=== PATIENT | female | born 1945 | race African-American/Black ===

== ENCOUNTER 2018-04-15 19:14 | Inpatient (IN) | payer MEDICARE, MEDICAID ==
[~2018-04-15] VITALS: Ht 165.1 cm; Wt 77.1 kg
[2018-04-15] MEDS ORDERED: DEXT 5%/0.45% NACL 1000ML 1,000 ML IV ONE (19:57)
[2018-04-15] MEDS ORDERED: SODIUM CHLORIDE 0.9% 500 ML IV ONE (19:57)
[2018-04-15 20:36] LABS: BASOPHILS % 0.2 % (0.0-2.0); HEMOGLOBIN. 12.2 g/dL (12.0-16.0); LYMPHOCYTES % 10.7 % (20.0-50.0); MEAN CORPUSCULAR VOLUME 94.2 fL (81.0-99.0); MEAN PLATELET VOLUME 9.9 fl (7.4-10.4); MONOCYTES % 6.1 % (2.0-8.0); PLATELET 225 x1000/uL (130-400); RED BLOOD CELL COUNT 3.93 mill/uL (4.2-5.4)
[2018-04-15 20:40] LABS: CHLORIDE 105 mEq/L (98-107)
[2018-04-15 20:44] LABS: PROTHROMBIN TIME 9.9 sec (9.1-11.1)
[2018-04-15] MEDS ORDERED: CALCIUM CHLORIDE 1GM/10ML SYR IV ONE (21:00)
[2018-04-15] MEDS ORDERED: SODIUM BICARBONATE 8.4% 1 MEQ/ML 50ML SYR IV ONE (21:00)
[2018-04-15] MEDS ORDERED: SODIUM POLYSTYRENE SULFONATE 15 G/60 ML BOT PO ONE (21:00)
[2018-04-15] MEDS ORDERED: CLONIDINE 0.2MG TABLET PO ONE (21:15)
[2018-04-15 21:36] LABS: CREATINE KINASE 294 IU/L (26-192)
[2018-04-15 22:14] LABS: CLARITY URINE CLOUDY (CLEAR); COLOR URINE YELLOW (YELLOW); KETONES URINE NEGATIVE (NEGATIVE); LEUKOCYTE ESTERASE URINE 2+ (NEGATIVE); NITRITE URINE POSITIVE (NEGATIVE); OCCULT BLOOD URINE NEGATIVE (NEGATIVE); PH URINE 6.5 (4.5-8.0); PROTEIN URINE NEGATIVE (NEGATIVE); SPECIFIC GRAVITY URINE 1.011 (1.005-1.030); UROBILINOGEN URINE 0.2 E.U./dL (0.2-1.0)
[2018-04-15] MEDS ORDERED: CEFTRIAXONE 1 G PREMIX 50 ML IV ONE (23:30)
[2018-04-16] VITALS (7 sets, daily range): BP systolic 136–173; BP diastolic 57–77
[2018-04-16] MEDS ORDERED: INSULIN REGULAR (HUMULIN R) 300UNITS/3ML IV ONE (00:15)
[2018-04-16] MEDS ORDERED: DEXTROSE 50% WATER 50ML SYRINGE IV ONE (00:15)
[2018-04-16] MEDS ORDERED: ALBUTEROL (0.083%) 2.5MG/3ML NEB HHN ONE (00:15)
[2018-04-16] MEDS ORDERED: SODIUM BICARBONATE 8.4% 1 MEQ/ML 50ML SYR IV ONE (00:15)
[2018-04-16] MEDS ORDERED: DOCUSATE SODIUM 100MG CAPSULE PO PRN (05:45)
[2018-04-16] MEDS ORDERED: ACETAMINOPHEN 325MG TABLET PO PRN (05:45)
[2018-04-16] MEDS ORDERED: DEXTROSE 50% WATER 50ML SYRINGE IV PRN (05:45)
[2018-04-16] MEDS ORDERED: MAGNESIUM/ALUMINUM HYDROXIDE/SIMETHICONE 30ML UDC PO PRN (05:45)
[2018-04-16] MEDS ORDERED: ENOXAPARIN 40MG/0.4ML SYR SUBCUT SCH (05:45)
[2018-04-16] MEDS ORDERED: ONDANSETRON HCL 4MG/2ML INJ IV PRN (05:45)
[2018-04-16] MEDS ORDERED: HYDRALAZINE 20MG/ML VIAL IV PRN (05:45)
[2018-04-16] MEDS ORDERED: HYDROCODONE/ACETAMINOPHEN 5/325MG TABLET PO PRN (05:45)
[2018-04-16] MEDS ORDERED: LORAZEPAM 2MG/ML CPJ IV PRN (05:45)
[2018-04-16] MEDS ORDERED: CEFTRIAXONE 1 G PREMIX 50 ML IV SCH ×3 (05:45→21:00)
[2018-04-16] MEDS ORDERED: HYDROMORPHONE HCL/PF 2MG/ML CPJ IV PRN (05:45)
[2018-04-16] MEDS ORDERED: IPRATROPIUM/ALBUTEROL 0.5-3(2.5)MG/3ML NEB INH PRN (05:45)
[2018-04-16] MEDS ORDERED: GUAIFENESIN 200MG/10ML SUGAR FREE UDC PO PRN (05:45)
[2018-04-16] MEDS ORDERED: CLONIDINE 0.1MG TABLET PO PRN (05:45)
[2018-04-16] MEDS ORDERED: DIPHENHYDRAMINE 50MG/ML VIAL IV PRN (05:45)
[2018-04-16] MEDS ORDERED: SODIUM CHLORIDE 0.9% INJ 3ML FLUSH IVF SCH (06:00)
[2018-04-16 06:47] LABS: HEMATOCRIT 32.8 % (36.0-48.0); HEMOGLOBIN 10.9 g/dL (12.0-16.0); MEAN CORPUSCULAR HEMOGLOBIN 31.5 pg (28.0-32.0); PLATELET 186 x1000/uL (130-400); RED BLOOD CELL COUNT 3.45 mill/uL (4.2-5.4); RED CELL DISTRIBUTION WIDTH 14.1 % (11.6-14.6)
[2018-04-16] MEDS ORDERED: *CEFTRIAXONE XX SCH (10:30)
[2018-04-16 10:58] LABS: CHLORIDE 105 mEq/L (98-107)
[2018-04-16 11:07] LABS: CREATINE KINASE 183 IU/L (26-192)
[2018-04-16 11:08] LABS: CREATINE KINASE MB FRACTION 1.9 ng/mL (0.5-3.6)
[2018-04-16] MEDS: INSULIN LISPRO 100 UNITS/ML SUBCUT SCH ×3 (12:02→21:10)
[2018-04-16] MEDS: ASPIRIN 81MG EC TABLET PO SCH (12:06)
[2018-04-16] MEDS: ENOXAPARIN 30MG/0.3ML SYR SUBCUT SCH (12:07)
[2018-04-16 12:09] LABS: BASOPHILS % 0.2 % (0.0-2.0); EOSINOPHILS % 1.7 % (0.0-5.0); HEMATOCRIT. 32.6 % (36.0-48.0); HEMOGLOBIN. 10.8 g/dL (12.0-16.0); LYMPHOCYTES % 14.3 % (20.0-50.0); MEAN CORPUSCULAR HEMOGLOBIN 31.2 pg (28.0-32.0); MEAN CORPUSCULAR VOLUME 94.2 fL (81.0-99.0); MONOCYTES % 6.6 % (2.0-8.0); NEUTROPHILS % 77.2 % (40.0-76.0); PLATELET 194 x1000/uL (130-400); RED BLOOD CELL COUNT 3.47 mill/uL (4.2-5.4); RED CELL DISTRIBUTION WIDTH 14.2 % (11.6-14.6)
[2018-04-16] MEDS: BLOOD SUGAR DIAGNOSTIC STRIP TEST SCH ×3 (12:41→21:06)
[2018-04-16] MEDS: SODIUM CHLORIDE 0.9% INJ 3ML FLUSH IVF SCH ×2 (14:00→21:05)
[2018-04-16 15:25] LABS: CREATINE KINASE 396 IU/L (26-192)
[2018-04-16 15:26] LABS: CREATINE KINASE MB FRACTION 6.1 ng/mL (0.5-3.6)
[2018-04-16] MEDS ORDERED: VANCOMYCIN 1 G PREMIX 200 ML IV SCH (15:30)
[2018-04-16] MEDS: AMLODIPINE 2.5MG TABLET PO SCH ×2 (15:51→21:05)
[2018-04-16] MEDS ORDERED: SODIUM POLYSTYRENE SULFONATE 15 G/60 ML BOT PO NR (16:00)
[2018-04-16] MEDS ORDERED: VANCOMYCIN 1250MG in DEXTROSE 5% WATER 250ML IV SCH (18:00)
[2018-04-17 04:00] VITALS: BP 168/69
[2018-04-17] MEDS: SODIUM CHLORIDE 0.9% INJ 3ML FLUSH IVF SCH ×2 (06:00→14:00)
[2018-04-17] MEDS: BLOOD SUGAR DIAGNOSTIC STRIP TEST SCH ×2 (06:00→12:40)
[2018-04-17 07:03] LABS: BASOPHILS % 0.3 % (0.0-2.0); HEMATOCRIT. 30.6 % (36.0-48.0); HEMOGLOBIN. 10.3 g/dL (12.0-16.0); LYMPHOCYTES % 17.9 % (20.0-50.0); MEAN CORPUSCULAR HEMOGLOBIN 31.5 pg (28.0-32.0); MEAN CORPUSCULAR VOLUME 93.8 fL (81.0-99.0); MONOCYTES % 6.9 % (2.0-8.0); NEUTROPHILS % 72.9 % (40.0-76.0); PLATELET 181 x1000/uL (130-400); RED BLOOD CELL COUNT 3.27 mill/uL (4.2-5.4)
[2018-04-17 07:40] LABS: VITAMIN B12 SERUM > 2000.0 pg/mL (211-911)
[2018-04-17 08:00] VITALS: BP 146/77
[2018-04-17] MEDS: INSULIN LISPRO 100 UNITS/ML SUBCUT SCH ×2 (08:07→13:10)
[2018-04-17] MEDS: ASPIRIN 81MG EC TABLET PO SCH (08:07)
[2018-04-17] MEDS: AMLODIPINE 2.5MG TABLET PO SCH (08:07)
[2018-04-17] MEDS: ENOXAPARIN 30MG/0.3ML SYR SUBCUT SCH (08:08)
[2018-04-17 09:03] LABS: CHLORIDE 105 mEq/L (98-107)
[2018-04-17 09:24] LABS: LDL CHOLESTEROL 73 mg/dL (5-100)
[2018-04-17 09:25] LABS: CREATINE KINASE 663 IU/L (26-192); CREATINE KINASE MB FRACTION 4.7 ng/mL (0.5-3.6)
[2018-04-17 09:27] LABS: HDL CHOLESTEROL 48 mg/dL (40-59); T4 FREE 0.99 ng/dL (0.76-1.46)
[2018-04-17 12:00] VITALS: BP 152/70
[2018-04-17] MEDS ORDERED: VANCOMYCIN 750 MG PREMIX 150 ML IV SCH (12:00)
[2018-04-17] MEDS ORDERED: MAGNESIUM 2 G PREMIX 50 ML IV SCH (12:30)
[2018-04-17] MEDS: MIDODRINE HCL 2.5MG TABLET PO SCH ×2 (12:38→13:00)
[2018-04-17 13:33] LABS: TOTAL IRON BINDING CAPACITY 259 ug/dL (250-450)
[2018-04-19 09:07] LABS: COMPLEMENT C3 151 mg/dL (82-167)
[2018-04-19 17:08] LABS: ANTI-NUCLEAR ANTIBODIES DIRECT Negative (Negative)
== END 2018-04-17 16:16 | disposition short-term general hospital (02) | DRG 640 ==
LOC: ER 19:14 → 7WST 04-16 00:35 → EDBEDREQDT 04-16 00:39 → EDBEDREQ 04-16 00:39 → EDBEDREQTM 04-16 00:39 → ENRESERV 04-16 07:27
PROVIDERS: ADMIT Internal Medicine; ATTEND Internal Medicine
DX: E87.5 Hyperkalemia (principal); G93.41 Metabolic encephalopathy; N17.9 Acute kidney failure, unspecified; I13.0 Hypertensive heart and chronic kidney disease with heart failure and stage 1 through stage 4 chronic kidney disease, or unspecified chronic kidney disease; N39.0 Urinary tract infection, site not specified; E46 Unspecified protein-calorie malnutrition; D64.9 Anemia, unspecified; E11.22 Type 2 diabetes mellitus with diabetic chronic kidney disease; R41.89 Other symptoms and signs involving cognitive functions and awareness; E83.52 Hypercalcemia; E86.0 Dehydration; I50.9 Heart failure, unspecified; I95.1 Orthostatic hypotension; N18.9 Chronic kidney disease, unspecified; Z85.3 Personal history of malignant neoplasm of breast; Z86.73 Personal history of transient ischemic attack (TIA), and cerebral infarction without residual deficits; Z90.13 Acquired absence of bilateral breasts and nipples; Z68.28 Body mass index [BMI] 28.0-28.9, adult
CPT/HCPCS: 36415; 71045; 76770; 80048; 80061; 82550; 82553; 82607; 82962; 83540; 83550; 83605; 83735; 83880; 84132; 84439; 84443; 84484; 85027; 85044; 85379; 86038; 86160; 93005; 93970; 94644; 96365; 99285; J0696; J1650; J1815; J3370; J3475; J3490; J7040; J7060; J7611

== ENCOUNTER 2019-12-12 18:22 | Emergency (ER) | payer OTHER, MEDICAID ==
[~2019-12-12] VITALS: Ht 170.2 cm; Wt 78.0 kg
[2019-12-12] MEDS ORDERED: SODIUM CHLORIDE 0.9% 1,000 ML IV ONE (18:42)
[2019-12-12 18:57] LABS: BASOPHILS % 0.7 % (0.0-2.0); EOSINOPHILS % 1.6 % (0.0-5.0); HEMATOCRIT. 35.9 % (36.0-48.0); LYMPHOCYTES % 23.6 % (20.0-50.0); MEAN CORPUSCULAR HEMOGLOBIN 30.4 pg (28.0-32.0); MEAN CORPUSCULAR VOLUME 91.3 fL (81.0-99.0); MEAN PLATELET VOLUME 10.2 fl (7.4-10.4); NEUTROPHILS % 66.1 % (40.0-76.0); PLATELET 269 x1000/uL (130-400); RED BLOOD CELL COUNT 3.94 mill/uL (4.2-5.4)
[2019-12-12 19:02] LABS: CHLORIDE 96 mEq/L (98-107)
[2019-12-12 19:05] LABS: INR 1.5; PROTHROMBIN TIME 15.1 sec (9.6-11.0)
[2019-12-12 19:07] LABS: ETHANOL BLOOD < 10 mg/dL
[2019-12-12 19:11] LABS: LDL CHOLESTEROL 51 mg/dL (5-100)
[2019-12-12 20:22] LABS: CLARITY URINE CLEAR (CLEAR); COLOR URINE YELLOW (YELLOW); KETONES URINE NEGATIVE (NEGATIVE); LEUKOCYTE ESTERASE URINE NEGATIVE (NEGATIVE); NITRITE URINE NEGATIVE (NEGATIVE); OCCULT BLOOD URINE NEGATIVE (NEGATIVE); PH URINE 7.5 (4.5-8.0); PROTEIN URINE 2+ (NEGATIVE); SPECIFIC GRAVITY URINE 1.024 (1.005-1.030); UROBILINOGEN URINE 0.2 E.U./dL (0.2-1.0)
[2019-12-12 20:39] LABS: *AMPHETAMINES SCREEN URINE NEGATIVE (NEGATIVE); *BARBITURATES SCREEN URINE NEGATIVE (NEGATIVE); *BENZODIAZEPINES SCREEN URINE NEGATIVE (NEGATIVE); *COCAINE SCREEN URINE NEGATIVE (NEGATIVE); CANNABINOID URINE SCREEN PRESUMTIVE POSITIVE (NEGATIVE); METHADONE URINE SCREEN NEGATIVE (NEGATIVE); OPIATES URINE SCREEN PRESUMTIVE POSITIVE (NEGATIVE); PHENCYCLIDINE URINE SCREEN NEGATIVE (NEGATIVE)
[2019-12-12] MEDS ORDERED: ASPIRIN 325MG TABLET PO ONE (21:15)
[2019-12-12 22:52] VITALS: BP 137/52
== END 2019-12-13 00:11 | disposition short-term general hospital (02) ==
LOC: ER 18:22 → CANBEDREQ 23:04 → ER 12-13 00:11
DX: R41.82 Altered mental status, unspecified (principal); I49.9 Cardiac arrhythmia, unspecified
CPT/HCPCS: 36415; 70450; 70496; 71045; 80053; 80305; 80320; 81003; 82962; 83721; 84484; 85025; 85610; 93005; 96360; 99285; J7030; G0480

== ENCOUNTER 2020-05-04 14:21 | Emergency (ER) | payer OTHER, MEDICAID ==
[~2020-05-04] VITALS: Ht 160 cm; Wt 68.0 kg
[2020-05-04] MEDS ORDERED: SODIUM CHLORIDE 0.9% 1,000 ML IV ONE (14:30)
[2020-05-04 16:25] LABS: CHLORIDE 110 mEq/L (98-107)
[2020-05-04 16:33] LABS: BASOPHILS % 0.3 % (0.0-2.0); EOSINOPHILS % 2.1 % (0.0-5.0); HEMATOCRIT. 34.4 % (36.0-48.0); HEMOGLOBIN. 11.4 g/dL (12.0-16.0); LYMPHOCYTES % 20.7 % (20.0-50.0); MEAN CORPUSCULAR HEMOGLOBIN 30.6 pg (28.0-32.0); MEAN CORPUSCULAR VOLUME 92.8 fL (81.0-99.0); MEAN PLATELET VOLUME 10.2 fl (7.4-10.4); MONOCYTES % 6.9 % (2.0-8.0); PLATELET 202 x1000/uL (130-400); RED CELL DISTRIBUTION WIDTH 14.9 % (11.6-14.6)
[2020-05-04 16:34] LABS: INR 1.4; PROTHROMBIN TIME 14.6 sec (9.6-11.0)
[2020-05-04 18:44] LABS: CLARITY URINE CLEAR (CLEAR); COLOR URINE YELLOW (YELLOW); KETONES URINE NEGATIVE (NEGATIVE); LEUKOCYTE ESTERASE URINE NEGATIVE (NEGATIVE); NITRITE URINE NEGATIVE (NEGATIVE); OCCULT BLOOD URINE NEGATIVE (NEGATIVE); PH URINE 6.5 (4.5-8.0); PROTEIN URINE 2+ (NEGATIVE); SPECIFIC GRAVITY URINE 1.013 (1.005-1.030); UROBILINOGEN URINE 0.2 E.U./dL (0.2-1.0)
[2020-05-04] MEDS ORDERED: SODIUM POLYSTYRENE SULFONATE 15 G/60 ML BOT PO ONE (19:15)
[2020-05-04 23:14] VITALS: BP 190/85
== END 2020-05-04 23:16 | disposition short-term general hospital (02) ==
LOC: ER 14:21
DX: R53.1 Weakness (principal); R42 Dizziness and giddiness; Z20.822 Contact with and (suspected) exposure to COVID-19; N28.9 Disorder of kidney and ureter, unspecified; E86.0 Dehydration; I10 Essential (primary) hypertension; E11.9 Type 2 diabetes mellitus without complications; I44.4 Left anterior fascicular block; Z85.9 Personal history of malignant neoplasm, unspecified; E78.00 Pure hypercholesterolemia, unspecified; Z86.73 Personal history of transient ischemic attack (TIA), and cerebral infarction without residual deficits
CPT/HCPCS: 36415; 70450; 71045; 80053; 81003; 82962; 84484; 85025; 85610; 87426; 93005; 96360; 99285; J7030

== ENCOUNTER 2021-11-20 11:54 | Emergency (ER) | payer OTHER, MEDICAID ==
[~2021-11-20] VITALS: Ht 162.6 cm; Wt 64.0 kg
[~2021-11-20 11:54] MED LIST: ATOR20TA65 PO; GABA-529 PO; GLIP1TAB5 PO; LOSA25TA26 PO
[2021-11-20] MEDS ORDERED: SODIUM CHLORIDE 0.9% 1,000 ML IV ONE (12:45)
[2021-11-20 13:00] LABS: BASOPHILS % 0.2 % (0.0-2.0); EOSINOPHILS % 3.1 % (0.0-5.0); HEMATOCRIT. 38.9 % (36.0-48.0); HEMOGLOBIN. 12.8 g/dL (12.0-16.0); LYMPHOCYTES % 17.1 % (20.0-50.0); MEAN CORPUSCULAR HEMOGLOBIN 31.6 pg (28.0-32.0); MEAN CORPUSCULAR VOLUME 96.6 fL (81.0-99.0); MEAN PLATELET VOLUME 10.4 fl (7.4-10.4); MONOCYTES % 6.9 % (2.0-8.0); NEUTROPHILS % 72.7 % (40.0-76.0); PLATELET 195 x1000/uL (130-400); RED BLOOD CELL COUNT 4.03 mill/uL (4.2-5.4); RED CELL DISTRIBUTION WIDTH 13.5 % (11.6-14.6)
[2021-11-20 13:11] LABS: CHLORIDE 103 mEq/L (98-107)
[2021-11-20 13:22] LABS: CREATINE KINASE 72 IU/L (26-192); ETHANOL BLOOD < 10 mg/dL
[2021-11-20 17:30] LABS: CLARITY URINE CLEAR (CLEAR); COLOR URINE YELLOW (YELLOW); KETONES URINE NEGATIVE (NEGATIVE); LEUKOCYTE ESTERASE URINE TRACE (NEGATIVE); NITRITE URINE NEGATIVE (NEGATIVE); OCCULT BLOOD URINE NEGATIVE (NEGATIVE); PROTEIN URINE 1+ (NEGATIVE); SPECIFIC GRAVITY URINE 1.009 (1.005-1.030); UROBILINOGEN URINE 0.2 E.U./dL (0.2-1.0)
[2021-11-20 18:13] LABS: *AMPHETAMINES SCREEN URINE NEGATIVE (NEGATIVE); *BARBITURATES SCREEN URINE NEGATIVE (NEGATIVE); *BENZODIAZEPINES SCREEN URINE NEGATIVE (NEGATIVE); *COCAINE SCREEN URINE NEGATIVE (NEGATIVE); CANNABINOID URINE SCREEN NEGATIVE (NEGATIVE); METHADONE URINE SCREEN NEGATIVE (NEGATIVE); OPIATES URINE SCREEN NEGATIVE (NEGATIVE); PHENCYCLIDINE URINE SCREEN NEGATIVE (NEGATIVE)
[2021-11-20 19:30] VITALS: BP 174/73
[2021-11-20] MEDS ORDERED: CLONIDINE 0.1MG TABLET PO ONE (19:45)
== END 2021-11-20 21:00 | disposition short-term general hospital (02) ==
LOC: ER 11:54 → EDBEDREQTM 14:36 → CANBEDREQ 17:48 → ER 21:00
DX: G93.40 Encephalopathy, unspecified (principal); I48.91 Unspecified atrial fibrillation; E11.9 Type 2 diabetes mellitus without complications; I10 Essential (primary) hypertension; Z20.822 Contact with and (suspected) exposure to COVID-19
CPT/HCPCS: 36415; 70450; 71045; 80053; 80305; 80320; 81003; 82550; 84484; 85025; 87426; 93005; 96360; 96361; 99291; C9803; J7030; G0480

== ENCOUNTER 2022-02-28 08:36 | Emergency (ER) | payer OTHER, MEDICAID ==
[~2022-02-28] VITALS: Ht 170.2 cm; Wt 73.0 kg
[2022-02-28 09:48] LABS: BASOPHILS % 0.6 % (0.0-2.0); EOSINOPHILS % 2.8 % (0.0-5.0); HEMATOCRIT. 40.9 % (36.0-48.0); HEMOGLOBIN. 13.5 g/dL (12.0-16.0); LYMPHOCYTES % 16.8 % (20.0-50.0); MEAN CORPUSCULAR HEMOGLOBIN 31.2 pg (28.0-32.0); MEAN CORPUSCULAR VOLUME 94.2 fL (81.0-99.0); MEAN PLATELET VOLUME 9.8 fl (7.4-10.4); MONOCYTES % 6.8 % (2.0-8.0); PLATELET 218 x1000/uL (130-400); RED BLOOD CELL COUNT 4.34 mill/uL (4.2-5.4); RED CELL DISTRIBUTION WIDTH 13.5 % (11.6-14.6)
[2022-02-28 09:55] LABS: CHLORIDE 108 mEq/L (98-107)
[2022-02-28 10:05] LABS: CREATINE KINASE 45 IU/L (26-192)
[2022-02-28 12:39] LABS: CLARITY URINE CLOUDY (CLEAR); COLOR URINE YELLOW (YELLOW); KETONES URINE NEGATIVE (NEGATIVE); LEUKOCYTE ESTERASE URINE 2+ (NEGATIVE); NITRITE URINE NEGATIVE (NEGATIVE); OCCULT BLOOD URINE 1+ (NEGATIVE); PH URINE 6.5 (4.5-8.0); PROTEIN URINE 3+ (NEGATIVE); SPECIFIC GRAVITY URINE 1.014 (1.005-1.030); UROBILINOGEN URINE 0.2 E.U./dL (0.2-1.0)
[2022-02-28] MEDS ORDERED: CEFTRIAXONE 1 G PREMIX 50 ML IV SCH (13:45)
[2022-02-28] MEDS ORDERED: LOSARTAN POTASSIUM 25 MG TABLET PO ONE (13:45)
[2022-02-28 15:15] VITALS: BP 163/76
== END 2022-02-28 16:57 | disposition short-term general hospital (02) ==
LOC: ER 08:45
DX: R53.1 Weakness (principal); R42 Dizziness and giddiness; I11.9 Hypertensive heart disease without heart failure; I44.7 Left bundle-branch block, unspecified; I48.91 Unspecified atrial fibrillation; Z20.822 Contact with and (suspected) exposure to COVID-19; E11.9 Type 2 diabetes mellitus without complications; F03.90 Unspecified dementia, unspecified severity, without behavioral disturbance, psychotic disturbance, mood disturbance, and anxiety; Z95.0 Presence of cardiac pacemaker
CPT/HCPCS: 36415; 70450; 71045; 72170; 80053; 81003; 82550; 84484; 85025; 86850; 86900; 86901; 87040; 87077; 87086; 87186; 87426; 93005; 99285; C9803; J0696